=== PATIENT | male | born 2005 | race Caucasian/White ===

== ENCOUNTER 2024-12-29 14:06 | Emergency (ER) | payer BC, SELFPAY ==
[2024-12-29 14:19] VITALS: BP 122/72; PULSE 80; TEMP 37.2; O2SAT 99; BMI 31.6
[2024-12-29 14:46] LABS: Basophils Percent Auto 0.4 % (0.2-2.0); Eosinophils Absolute Auto 0.1 10^3/uL (0.0-0.7); Eosinophils Percent Auto 0.8 % (0.9-7.0); Hematocrit 43.9 % (42.0-54.0); Hemoglobin 15.4 g/dL (14.0-18.0); Immature Granulocytes Abs Auto 0.02 10^3/uL (0.00-0.03); Immature Granulocytes Pct Auto 0.2 % (0.0-0.5); Lymphocytes Absolute Auto 2.2 10^3/uL (1.2-3.8); Lymphocytes Percent Auto 20.2 % (20.5-60.0); Mean Corpuscular HGB Conc 35.1 g/dL (29.9-35.2); Mean Corpuscular Hemoglobin 30.1 pg (25.9-34.0); Mean Corpuscular Volume 85.7 fL (80.0-94.0); Mean Platelet Volume 8.7 fL (9.5-13.5); Monocytes Absolute Auto 1.2 10^3/uL (0.3-0.8); Monocytes Percent Auto 11.5 % (1.7-12.0); Neutrophils Absolute Auto 7.2 10^3/uL (1.4-6.5); Neutrophils Percent Auto 66.9 % (43.0-75.0); Platelet Count 262 10^3/uL (150-450); Red Blood Count 5.12 10^6/uL (4.70-6.10); Red Cell Distribution Width 11.5 % (11.0-15.0); White Blood Count 10.7 10^3/uL (4.0-11.0)
[2024-12-29 14:47] LABS: Bilirubin Urine NEGATIVE (NEGATIVE); Blood Urine NEGATIVE (NEGATIVE); Clarity Urine CLEAR (CLEAR); Color Urine LT. YELLOW (YELLOW); Glucose Urine UA NEGATIVE (NEGATIVE); Ketones Urine NEGATIVE (NEGATIVE); Leukocyte Esterase Urine NEGATIVE (NEGATIVE); Nitrite Urine NEGATIVE (NEGATIVE); Protein Urine NEGATIVE (NEG/TRACE); Specific Gravity Urine <=1.005 (1.005-1.025); Urobilinogen Urine 0.2 EU/dL (0.2-1.0); pH Urine 6.5 (5.0-9.0)
[2024-12-29 14:58] LABS: Bacteria Urine NONE SEEN #/HPF (NONE SEEN); Cast Seen? NONE SEEN #/LPF (NONE SEEN); Crystals Seen? None Seen #/HPF (None Seen); Mucus Urine NONE SEEN (NONE SEEN); RBC Urine NONE SEEN #/HPF (0-2); Squamous Epithelial Cell Urine RARE #/LPF (NONE/RARE); Urine Culture Indicated NO; WBC Urine NONE SEEN #/HPF (NONE SEEN)
[2024-12-29 15:03] LABS: INR 1.02; Prothrombin Time 10.8 sec (9.0-11.6)
[2024-12-29 15:22] LABS: Alanine Aminotransferase 55 U/L (16-63); Albumin Level 4.3 g/dL (3.4-5.0); Alkaline Phosphatase 80 U/L (46-116); Anion Gap 12.6; Aspartate Amino Transferase 22 U/L (15-37); BUN Creatinine Ratio 15.4; Bilirubin Total 0.9 mg/dL (0.2-1.0); Calcium 9.5 mg/dL (8.5-10.1); Carbon Dioxide 29.4 mmol/L (21.0-32.0); Chloride 102 mmol/L (98-107); Estimated GFR (African America >60 (>=60 mL/min/1.73m^2); Estimated GFR (Non-African Ame >60 (>=60 mL/min/1.73m^2); Globulin 4.1 g/dL; Glucose 93 mg/dL (74-106); Sodium 140 mmol/L (136-145); Total Protein 8.4 g/dL (6.4-8.2)
--- NOTE | 2024-12-29 15:47 | ED_ITS ---
HPI - Abdominal Pain General Chief Complaint: Abdominal Pain Stated Complaint: ABDOMINAL PAIN Time Seen by Provider: 12/29/24 14:35 Source: patient History of Present Illness HPI narrative: Patient is a 19-year-old male with no other major medical problems who presents to the emergency department for right-sided abdominal pain for the last 3 days. He reports pain in the right mid abdomen without radiation. He states the pain is constant but gets worse with certain positions. He has had no previous abdominal surgeries. He has had no fevers, upper respiratory symptoms. No urinary symptoms. No medications taken prior to arrival. Related Data Home Medications ?Medication ?Instructions ?Recorded ?Confirmed No Known Home Medications 12/29/24 12/29/24 Allergies Allergy/AdvReac Type Severity Reaction Status Date / Time No Known Drug Allergies Allergy Verified 12/29/24 14:18 Review of Systems ROS Constitutional Denies: fever or chills Ears, nose, mouth, and throat Denies: throat pain or nasal congestion Cardiovascular Denies: chest pain Respiratory Denies: shortness of breath or cough Gastrointestinal Reports: abdominal pain; Denies: nausea, vomiting or diarrhea Musculoskeletal Denies: back pain Integumentary/Breast Denies: rash Neurological Denies: numbness in extremities or weakness in extremities Hematologic/Lymphatic Denies: easy bruising or easy bleeding PFSH PFSH Social History Little interest or pleasure in doing things: not at all Feeling down, depressed, or hopeless: not at all Exam Narrative Exam Narrative: Gen.: Awake, alert, in no distress Head: Normocephalic, atraumatic ENT: Moist mucous membranes Respiratory: No respiratory distress, lungs clear bilaterally Cardio: Regular rate and rhythm Gastrointestinal: Abdomen is soft, nondistended and mildly tender in the right mid abdomen with no McBurney's tenderness. No guarding or rebound Extremities: Moves extremities equally Psych: Normal mood and affect Neuro: No focal neuro deficit Skin: Warm, dry, intact Constitutional Vital Signs, click to edit/add: Last Vital Signs Temp 99 F 12/29/24 14:19 Pulse 80 12/29/24 14:19 Resp 20 12/29/24 14:19 BP 122/72 12/29/24 14:19 Pulse Ox 99 12/29/24 14:19 O2 Del Method Room Air 12/29/24 14:19 Course Vital Signs Vital signs: Vital Signs Temperature 99 F 12/29/24 14:19 Pulse Rate 80 12/29/24 14:19 Respiratory Rate 20 12/29/24 14:19 Blood Pressure 122/72 12/29/24 14:19 Pulse Oximetry 99 12/29/24 14:19 Oxygen Delivery Method Room Air 12/29/24 14:19 Temperature 99 F 12/29/24 14:19 Pulse Rate 80 12/29/24 14:19 Respiratory Rate 20 12/29/24 14:19 Blood Pressure 122/72 12/29/24 14:19 Pulse Oximetry 99 12/29/24 14:19 Oxygen Delivery Method Room Air 12/29/24 14:19 MDM - Abdominal Pain MDM Narrative Medical decision making narrative: Patient last ate cereal at 1030 this morning. He was given IV Toradol and pain is well-controlled in the emergency department. He has stable vital signs, no vomiting. His workup is unremarkable with labs and urine. CT of the abdomen and pelvis with IV contrast shows dilated appendix at 1 cm with adjacent inflammation consistent with acute appendicitis. No free air or abscess. No general surgery coverage at this time, discussed with patient and mother at bedside and they request transfer to [facility]. Patient was accepted by Dr. Laughlin for general surgery. [facility] was contacted for bed assignment. Mother request to drive the patient by private car and I feel this is reasonable as the patient is hemodynamically stable and reliable for transfer with IV in place. He was given IV Zosyn for antibiotic coverage and will be transferred to [facility] by private car as a direct admission to the general surgery service. Critical care time 35 minutes SUPERVISED APC VISIT, PHYSICIAN ATTESTATION: Based on the medical record the care appears appropriate. ? Medical Records Attestation: I reviewed the patient's medical records. Lab Data Attestation: I reviewed the patient's lab results. Labs: Lab Results 12/29/24 12/29/24 Range/Units 14:30 14:33 WBC 10.7 (4.0-11.0) 10^3/uL RBC 5.12 (4.70-6.10) 10^6/uL Hgb 15.4 (14.0-18.0) g/dL Hct 43.9 (42.0-54.0) % MCV 85.7 (80.0-94.0) fL MCH 30.1 (25.9-34.0) pg MCHC 35.1 (29.9-35.2) g/dL RDW 11.5 (11.0-15.0) % Plt Count 262 (150-450) 10^3/uL MPV 8.7 L (9.5-13.5) fL Neut % (Auto) 66.9 (43.0-75.0) % Lymph % (Auto) 20.2 L (20.5-60.0) % [place] % (Auto) 11.5 (1.7-12.0) % Eos % (Auto) 0.8 L (0.9-7.0) % Baso % (Auto) 0.4 (0.2-2.0) % Neut # (Auto) 7.2 H (1.4-6.5) 10^3/uL Lymph # (Auto) 2.2 (1.2-3.8) 10^3/uL [place] # (Auto) 1.2 H (0.3-0.8) 10^3/uL Eos # (Auto) 0.1 (0.0-0.7) 10^3/uL Baso # (Auto) 0.0 (0.0-0.1) 10^3/uL Abs Immat Gran (auto) 0.02 (0.00-0.03) 10^3/uL Imm/Tot Granulo (auto) 0.2 (0.0-0.5) % PT 10.8 (9.0-11.6) sec INR 1.02 Sodium 140 (136-145) mmol/L Potassium 4.0 (3.5-5.1) mmol/L Chloride 102 (98-107) mmol/L Carbon Dioxide 29.4 (21.0-32.0) mmol/L Anion Gap 12.6 BUN 14.0 (7.0-18.0) mg/dL Creatinine 0.91 (0.70-1.30) mg/dL Est GFR ( Amer) >60 (>=60 mL/min/1.73m^2) Est GFR (Non-Af Amer) >60 (>=60 mL/min/1.73m^2) BUN/Creatinine Ratio 15.4 Glucose 93 (74-106) mg/dL Lactate 1.0 (0.4-2.0) mmol/L Calcium 9.5 (8.5-10.1) mg/dL Total Bilirubin 0.9 (0.2-1.0) mg/dL AST 22 (15-37) U/L ALT 55 (16-63) U/L Alkaline Phosphatase 80 (46-116) U/L Total Protein 8.4 H (6.4-8.2) g/dL Albumin 4.3 (3.4-5.0) g/dL Globulin 4.1 g/dL Albumin/Globulin Ratio 1.0 Lipase 32.0 (16.0-77.0) U/L Urine Color Lt. yellow (YELLOW) Urine Clarity Clear (CLEAR) Urine pH 6.5 (5.0-9.0) Ur Specific [place] <=1.005 A (1.005-1.025) Urine Protein Negative (NEG/TRACE) mg/dL Urine Glucose (UA) Negative (NEGATIVE) mg/dL Urine Ketones Negative (NEGATIVE) mg/dL Urine Occult Blood Negative (NEGATIVE) Urine Nitrite Negative (NEGATIVE) Urine Bilirubin Negative (NEGATIVE) Urine Urobilinogen 0.2 (0.2-1.0) EU/dL Ur Leukocyte Esterase Negative (NEGATIVE) Urine RBC None seen (0-2) #/HPF Urine WBC None seen (NONE SEEN) #/HPF Ur Squamous Epith Cells Rare (NONE/RARE) #/LPF Urine Crystals None seen (None Seen) #/HPF Urine Bacteria None seen (NONE SEEN) #/HPF Urine Casts None seen (NONE SEEN) #/LPF Urine Mucus None seen (NONE SEEN) Ur Culture Indicated? No Imaging Data CT scan - abdomen: Attestation: I have reviewed the pertinent imaging results. Radiologist's impression: CT of the abdomen and pelvis: Acute appendicitis, no free air or abscess. Hepatic steatosis. Discharge Plan Discharge Chief Complaint: Abdominal Pain Clinical Impression: Abdominal pain, Acute appendicitis Patient Disposition: [facility] Time of Disposition Decision: 17:23 Discharge location: [facility] Condition: Good Mode of Transportation: Private Vehicle Prescriptions / Home Meds: No Action No Known Home Medications Print Language: [place] Referrals: Physician,Non-Staff, MD [Primary Care Provider] - 1 week
[2024-12-29] MEDS: KETOROLAC TROMETHAMINE 30 MG/ML VIAL IVP (16:02)
[2024-12-29] MEDS: PIPERACILLIN SODIUM/TAZOBACTAM 4.5 GM in 0.9 % SODIUM CHLORIDE 50 ML IV (16:54)
[2024-12-29 18:22] VITALS: BP 92/52; PULSE 87; O2SAT 100
== END 2024-12-29 18:42 | disposition short-term general hospital (02) ==
PROVIDERS: Physician Assistant; Emergency Provider Emergency Medicine; Family Provider Family Medicine
DX: K35.80 Unspecified acute appendicitis (principal); K76.0 Fatty (change of) liver, not elsewhere classified; R10.9 Unspecified abdominal pain
CPT/HCPCS: 36415; 74177; 80053; 81001; 83605; 83690; 85025; 85610; 96365; 96375; 99285; J1885; J2543; Q9967